=== PATIENT | female | born 1950 | race Caucasian/White ===

== ENCOUNTER → 2020-12-10 | Outpatient (CLI) | payer OTHER ==
[~2020-12-10] MED LIST: ACYC400; Lithium Carbon150 MG; NEXIUM 24HR20 MG
[2020-12-10 14:14] LABS: Stool Occult Bld Immuno 1 Positive (NEGATIVE)
== END | disposition home or self-care (01) ==
LOC: LAB 06:15 → LAB SHORT 06:15
PROVIDERS: Internal Medicine Gastroenterology
DX: Z83.71 Family history of colonic polyps (principal)
CPT/HCPCS: 82274

== ENCOUNTER 2020-12-19 10:19 | Day surgery (SDC) | payer OTHER ==
[~2020-12-19] VITALS: Ht 160 cm; Wt 75.0 kg
== END 2020-12-19 13:30 | disposition home or self-care (01) ==
LOC: ORSCSDS 10:19
PROVIDERS: Internal Medicine Gastroenterology
PROC: 0DJD8ZZ Inspection of Lower Intestinal Tract, Via Natural or Artificial Opening Endoscopic (ICD-10-PCS; principal; 2020-12-19 11:30)
PROC: 0DB58ZX Excision of Esophagus, Via Natural or Artificial Opening Endoscopic, Diagnostic (ICD-10-PCS; principal; 2020-12-19 11:30)
PROC: 0D758ZZ Dilation of Esophagus, Via Natural or Artificial Opening Endoscopic (ICD-10-PCS; principal; 2020-12-19 11:30)
DX: R13.14 Dysphagia, pharyngoesophageal phase (principal); K92.1 Melena; K22.2 Esophageal obstruction; E66.9 Obesity, unspecified; Z68.30 Body mass index [BMI] 30.0-30.9, adult; Z83.71 Family history of colonic polyps; K57.30 Diverticulosis of large intestine without perforation or abscess without bleeding; K21.9 Gastro-esophageal reflux disease without esophagitis; Z79.899 Other long term (current) drug therapy
CPT/HCPCS: 88305; J2704

== ENCOUNTER → 2021-10-05 | Outpatient (CLI) | payer OTHER | END | disposition home or self-care (01) | LOC: LAB SHORT 15:13 | DX: L57.0 Actinic keratosis (principal) | CPT/HCPCS: 88305 ==